=== PATIENT | male | born 1970 | race Caucasian/White ===

== ENCOUNTER 2016-06-19 16:13 | Emergency (ER) | payer OTHER ==
[~2016-06-19] VITALS: Ht 185.4 cm; Wt 92.0 kg
[2016-06-19] MEDS ORDERED: NAPROSYN500 MG PO (19:55)
[2016-06-19 20:00] VITALS: BP 127/87
== END 2016-06-19 20:00 | disposition home or self-care (01) | DRG 301 ==
LOC: ED 16:13
DX: I83.812 Varicose veins of left lower extremity with pain (principal); I80.3 Phlebitis and thrombophlebitis of lower extremities, unspecified

== ENCOUNTER 2018-04-06 21:38 | Emergency (ER) | payer SELFPAY ==
[~2018-04-06] VITALS: Ht 185.4 cm; Wt 92.2 kg
[~2018-04-06 21:38] MED LIST: NAPROSYN500 MG PO
[2018-04-06 22:31] LABS: HEMATOCRIT 46.6 % (39.0-50.0); HEMOGLOBIN 15.8 g/dl (14.0-18.0); IMMATURE GRANULOCYTES 0.5 % (0.0-5.0); MEAN CORPUSCULAR HGB CONC 33.9 g/L CALC (32.0-36.0); NEUT# 4.4 thou/uL (1.82-7.42); RED BLOOD COUNT 5.26 mill/uL (4.70-6.10); RED CELL DISTRI WIDTH 13.4 % (11.5-15.5)
[2018-04-06 22:44] LABS: MEAN CELL VOLUME 88.6 fL CALC (80.0-100.0)
[2018-04-06 22:56] LABS: ALBUMIN 4.3 g/dL (3.2-5.0); ALKALINE PHOSPHATASE 74 u/l (38-126); ANION GAP 14 (6-22 (CALC)); BILIRUBIN, TOTAL 0.6 mg/dL (0.0-1.4); BUN 22 mg/dL (9-20); BUN/CREATININE RATIO 19 (12-20 (CALC)); CARBON DIOXIDE 30 mmol/l (22-30); CHLORIDE 98 mmol/l (95-108); CREATININE 1.2 mg/dL (0.7-1.3); GFR > 60 ML/MIN (>=60 (CALC)); GFR FOR AFR.AMER. > 60 ML/MIN (>=60 (CALC)); POTASSIUM 4.8 mmol/l (3.5-5.1); SODIUM 138 mmol/l (137-146); TOTAL PROTEIN 7.3 g/dL (6.3-8.2)
[2018-04-06 23:03] LABS: SGOT/AST 64 u/l (17-59)
[2018-04-06 23:58] LABS: URINE BILIRUBIN - DIPSTICK NEGATIVE (NEGATIVE); URINE BLOOD DIPSTICK NEGATIVE (NEGATIVE); URINE COLOR YELLOW; URINE GLUCOSE - DIPSTICK NEGATIVE (NEGATIVE); URINE KETONE NEGATIVE (NEGATIVE); URINE LEUK ESTERASE NEGATIVE (NEGATIVE); URINE NITRITE - DIPSTICK NEGATIVE (Negative); URINE PROTEIN - DIPSTICK NEGATIVE (NEG-TRACE); URINE SPECIFIC GRAVITY 1.015; URINE UROBILINOGEN - DIPSTICK 0.2 E.U./dL (0.2)
[2018-04-07] MEDS ORDERED: TAMSULOSIN0.4 MG PO (00:35)
[2018-04-07 00:50] VITALS: BP 136/85
== END 2018-04-07 00:50 | disposition home or self-care (01) | DRG 726 ==
LOC: ED 21:38
PROVIDERS: Emergency Medicine
DX: N40.1 Benign prostatic hyperplasia with lower urinary tract symptoms (principal); R33.8 Other retention of urine; R30.9 Painful micturition, unspecified; R35.0 Frequency of micturition

== ENCOUNTER 2018-08-07 13:06 | Emergency (ER) | payer SELFPAY ==
[~2018-08-07] VITALS: Ht 185.4 cm; Wt 95.0 kg
[~2018-08-07 13:06] MED LIST changes: +TAMSULOSIN0.4 MG PO
[2018-08-07 13:41] LABS: HEMATOCRIT 45.3 % (39.0-50.0); HEMOGLOBIN 15.3 g/dl (14.0-18.0); MEAN CELL VOLUME 87.6 fL CALC (80.0-100.0); RED BLOOD COUNT 5.17 mill/uL (4.70-6.10)
[2018-08-07 13:42] LABS: IMMATURE GRANULOCYTES 0.4 % (0.0-5.0); MEAN CORPUSCULAR HGB 29.6 pG CALC (26.0-32.0); MEAN CORPUSCULAR HGB CONC 33.8 g/L CALC (32.0-36.0); NEUT# 9.36 thou/uL (1.82-7.42); RED CELL DISTRI WIDTH 13.5 % (11.5-15.5)
[2018-08-07 13:52] LABS: ALBUMIN 4.2 g/dL (3.2-5.0); ALKALINE PHOSPHATASE 79 u/l (38-126); ANION GAP 12 (6-22 (CALC)); BUN 18 mg/dL (9-20); BUN/CREATININE RATIO 17 (12-20 (CALC)); CARBON DIOXIDE 29 mmol/l (22-30); CHLORIDE 104 mmol/l (95-108); GFR > 60 ML/MIN (>=60 (CALC)); GFR FOR AFR.AMER. > 60 ML/MIN (>=60 (CALC)); POTASSIUM 4.5 mmol/l (3.5-5.1); SGOT/AST 39 u/l (17-59); SODIUM 140 mmol/l (137-146); TOTAL PROTEIN 7.2 g/dL (6.3-8.2)
[2018-08-07 13:57] LABS: BILIRUBIN, TOTAL 1.1 mg/dL (0.0-1.4)
[2018-08-07] MEDS ORDERED: KEFLEX500 M1 PO (14:58)
[2018-08-07] MEDS ORDERED: BACTROBAN TOP (14:58)
[2018-08-07] MEDS ORDERED: BACTRIM DS1 TAB PO (14:58)
[2018-08-07 15:01] VITALS: BP 145/77
== END 2018-08-07 15:08 | disposition home or self-care (01) | DRG 607 ==
LOC: ED 13:06
PROVIDERS: Emergency Medicine
DX: S80.261A Insect bite (nonvenomous), right knee, initial encounter (principal); L03.115 Cellulitis of right lower limb; F17.210 Nicotine dependence, cigarettes, uncomplicated; W57.XXXA Bitten or stung by nonvenomous insect and other nonvenomous arthropods, initial encounter; B95.62 Methicillin resistant Staphylococcus aureus infection as the cause of diseases classified elsewhere